=== PATIENT | female | born 1980 | race Two or more races ===

== ENCOUNTER 2023-02-14 14:00 | Emergency (ER) | payer MEDICAID ==
[~2023-02-14] VITALS: Ht 165.1 cm; Wt 60.0 kg
[2023-02-14 16:13] VITALS: BP 123/83
[2023-02-14] MEDS ORDERED: SODIUM CHLORIDE 0.9% 1,000 ML IV ONE (17:00)
[2023-02-14 17:42] LABS: Albumin 3.7 g/dL (3.4-5.0); Calcium 8.9 mg/dL (8.5-10.1); Potassium 4.6 mmol/L (3.5-5.1)
[2023-02-14 17:46] LABS: BUN/Creatinine Ratio 12.9 (10.0-20.0); Bilirubin, Total 0.3 mg/dL (0.2-1.0); Total Protein 7.6 g/dL (6.4-8.2)
[2023-02-14 17:53] LABS: Beta HCG, Quantitative < 1 mlU/mL (1-3); Eosinophils # (auto) 0 10 ^3/uL (0-0.8); Hematocrit 32.9 % (36.0-46.0); Mean Corpuscular Hemoglobin 22.7 pg (28.0-32.0); Mean Corpuscular Hgb Conc. 30.8 g/dL (32.0-36.0); Mean Corpuscular Volume 73.6 fL (80.0-100.0); Thyroid Stimulating Hormone 1.89 uIU/mL (0.358-3.74)
[2023-02-14 17:56] LABS: Basophils # (auto) 0 10 ^3/uL (0-0.2); Basophils % (auto) 0.5 % (0.0-2.0); Eosinophils % (auto) 0.5 % (0.0-7.0); Hemoglobin 10.1 g/dL (12.2-16.2); Lymphocytes # (auto) 1.7 10 ^3/uL (0.4-5.4); Lymphocytes % (auto) 19.9 % (10.0-50.0); Monocytes # (auto) 0.8 10 ^3/uL (0-1.3); Monocytes % (auto) 9.6 % (0.0-12.0); Neutrophils % (auto) 69.5 % (37.0-80.0); Red Blood Cells 4.47 10^6/uL (4.0-5.20); Red Cell Distribution Width 18.5 % (11.8-14.3); White Blood Cell 8.6 10^3/uL (4.4-10.8)
[2023-02-14] MEDS ORDERED: HYDR-3682 PO (21:15)
[2023-02-14] MEDS ORDERED: FER325T PO (21:15)
== END 2023-02-14 22:01 | disposition home or self-care (01) ==
LOC: ER 14:00
DX: F41.0 Panic disorder [episodic paroxysmal anxiety] (principal); F45.8 Other somatoform disorders; D64.9 Anemia, unspecified; R10.2 Pelvic and perineal pain
CPT/HCPCS: 36415; 70450; 80053; 84443; 84702; 85025; 93005; 96360; 99284; J7030